=== PATIENT | male | born 1995 | race Caucasian/White ===

== ENCOUNTER 2018-08-18 18:54 | Emergency (ER) | payer SELFPAY ==
[~2018-08-18] VITALS: Ht 182.9 cm; Wt 86.4 kg
[2018-08-18 20:23] VITALS: BP 139/80
== END 2018-08-18 20:23 | disposition home or self-care (01) ==
LOC: EMS 18:55
DX: F10.10 Alcohol abuse, uncomplicated (principal); F17.200 Nicotine dependence, unspecified, uncomplicated
CPT/HCPCS: 99406